=== PATIENT | male | born 1990 | race Caucasian/White ===

== ENCOUNTER 2022-07-13 16:59 | Emergency (ER) | payer BC, OTHER ==
[2022-07-13] MEDS ORDERED: KETOROLAC TROMETHAMINE 60 MG/2 ML VIAL IM ONE (17:10)
[2022-07-13 17:21] VITALS: TEMP 98.3; BMI 35.2
[2022-07-13] MEDS ORDERED: KETOROLAC TROMETHAMINE 60 MG/2 ML VIAL ONE (17:26)
[2022-07-13 18:36] VITALS: BP 130/83; PULSE 64; RESP 20
== END 2022-07-13 19:11 | disposition home or self-care (01) ==
LOC: FER 16:59
PROC: 3E0233Z Introduction of Anti-inflammatory into Muscle, Percutaneous Approach (ICD-10-PCS; principal; 2022-07-13)
DX: N50.89 Other specified disorders of the male genital organs (principal); N43.3 Hydrocele, unspecified
CPT/HCPCS: 74019-TC-FY; 76775-TC; 76870-TC; 81003; 99285-25

== ENCOUNTER 2023-11-07 09:53 | Observation (INO) | payer OTHER ==
[2023-11-07] MEDS: MAG HYDROX/AL HYDROX/SIMETH -MYLANTA- ORAL SUSPENSION PO ONE (10:20)
[2023-11-07] MEDS: ASPIRIN 81 MG CHEWABLE TABLETS PO ONE (10:25)
[2023-11-07] MEDS: FAMOTIDINE 20 MG/50 ML IVPB 20 MG/50 ML MG IVPB ONE (10:30)
[2023-11-07 10:36] LABS: INR 0.89 (0.83-1.09); PROTHROMBIN TIME (PATIENT) 10.2 SEC (9.7-13.0)
[2023-11-07 10:38] LABS: ACTIVATED PTT 34.9 SECONDS (25.2-36.5)
[2023-11-07 10:43] LABS: HEMATOCRIT 51.4 % (35.4-49); MCH 29.7 pg (25.7-33.7); MEAN CELL VOLUME 90.1 fl (80-96); MEAN PLT VOLUME 8.3 fl (7.5-11.1); PLATELET COUNT 330.9 10^3/uL (134-434); RDW 13.2 % (11.9-15.9); WHITE BLOOD COUNT 6.9 10^3/uL (4.0-10.8)
[2023-11-07] MEDS ORDERED: ASPIRIN 81 MG CHEWABLE TABLETS ONE (10:43)
[2023-11-07] MEDS ORDERED: ACETAMINOPHEN INJECTION 100 ML IVPB ONE (10:43)
[2023-11-07] MEDS ORDERED: FAMOTIDINE 20 MG/50 ML IVPB 20 MG/50 ML MG IVPB ONE (10:43)
[2023-11-07] MEDS ORDERED: MAG HYDROX/AL HYDROX/SIMETH 30 ML UNIT-DOSE CUP ONE (10:44)
[2023-11-07] MEDS: ACETAMINOPHEN 1000 MG/100 ML BAG IVPB ONE (10:53)
[2023-11-07 11:01] LABS: PLATELET ESTIMATE ADEQUATE
[2023-11-07 11:05] LABS: ALBUMIN 5.3 g/dl (3.4-5.0); BILIRUBIN,TOTAL 0.8 mg/dl (0.2-1); CALCIUM 10.3 mg/dl (8.5-10.1); CREATININE 0.8 mg/dl (0.6-1.3); POTASSIUM 4.3 mmol/L (3.5-5.1); TOT PROT 8.1 g/dl (6.4-8.2)
[2023-11-07] MEDS ORDERED: LISINOPRIL 10 MG TABLET ONE (11:35)
[2023-11-07] MEDS: LISINOPRIL 20 MG TABLET PO ONE (11:39)
[2023-11-07 13:14] LABS: N-TERMINAL BNP 34.1 pg/ml (5-125)
[2023-11-07] MEDS: ATORVASTATIN CA 80 MG TABLET (FP) PO ONE (14:50)
[2023-11-07 15:49] VITALS: BMI 39.5
[2023-11-07] MEDS: diazePAM 5 MG TABLET PO ONE (21:30)
[2023-11-07] MEDS: FAMOTIDINE 20 MG TABLET PO SCH (21:30)
[2023-11-08 08:22] LABS: HEMOGLOBIN 15.6 G/dL (11.7-16.9); MCH 29.3 pg (25.7-33.7); MCHC 32.5 g/dl (32.0-35.9); MEAN CELL VOLUME 90.3 fl (80-96); PLATELET COUNT 303.6 10^3/uL (134-434); RBC 5.32 10^6/uL (4.00-5.60); RDW 13.5 % (11.9-15.9); WHITE BLOOD COUNT 8.2 10^3/uL (4.0-10.8)
[2023-11-08 08:35] LABS: CALCIUM 9.8 mg/dl (8.5-10.1); CREATININE 0.8 mg/dl (0.6-1.3); POTASSIUM 4.5 mmol/L (3.5-5.1)
[2023-11-08] MEDS ORDERED: LISINOPRIL 20 MG TABLET PO SCH (10:00)
[2023-11-08 10:11] VITALS: BP 124/70; PULSE 63; RESP 17; TEMP 98
[2023-11-08] MEDS: amLODIPine BESYLATE 10 MG TABLET (FP) PO SCH (10:38)
== END 2023-11-08 11:33 | disposition home or self-care (01) ==
LOC: FER 09:53 → FM/S 12:42
PROVIDERS: ADMIT Internal Medicine; ATTEND Internal Medicine
PROC: 3E033NZ Introduction of Analgesics, Hypnotics, Sedatives into Peripheral Vein, Percutaneous Approach (ICD-10-PCS; principal; 2023-11-07)
PROC: 3E033GC Introduction of Other Therapeutic Substance into Peripheral Vein, Percutaneous Approach (ICD-10-PCS; 2023-11-07)
DX: R07.9 Chest pain, unspecified (principal); I10 Essential (primary) hypertension; Z91.148 Patient's other noncompliance with medication regimen for other reason; K29.70 Gastritis, unspecified, without bleeding; F41.9 Anxiety disorder, unspecified; E66.01 Morbid (severe) obesity due to excess calories; Z68.39 Body mass index [BMI] 39.0-39.9, adult; R01.1 Cardiac murmur, unspecified
CPT/HCPCS: 0241U-QW; 36415; 71045-TC-FY; 80048; 80053; 80061; 83036; 83880; 84439; 84443; 84484; 85027; 85379; 85610; 85651; 85730; 93005; 96365; 96375; 99285-25; G0378; J0131